=== PATIENT | female | born 1950 | race Caucasian/White ===

== ENCOUNTER → 2016-12-14 | Outpatient (CLI) | payer MEDICARE ==
[~2016-12-14] MED LIST: MULT-856 PO; [UNRECOGNIZED DRUG - OTHER]; [UNRECOGNIZED DRUG - OTHER]
[2016-12-14 14:52] LABS: BASOPHILS % (AUTO) 1 % (0-2); EOSINOPHILS # (AUTO) 0.1 10^3uL; EOSINOPHILS % (AUTO) 2 % (0-4); LYMPHOCYTES # (AUTO) 2.6 X10^3; MEAN CORPUSCULAR HEMOGLOBIN 30.4 PG (26.0-34.0); MEAN CORPUSCULAR HGB CONC 33.2 g/dL (31.0-37.0); MEAN CORPUSCULAR VOLUME 92 FL (80-100); MEAN PLATELET VOLUME 9.6 FL (6.0-9.5); MONOCYTES # (AUTO) 0.5 X10^3; MONOCYTES % (AUTO) 7 % (3-11); NEUTROPHILS # (AUTO) 4.1 X10^3; NEUTROPHILS % (AUTO) 55 % (51-67); PLATELET COUNT 404 10^3uL (150-450); WHITE BLOOD COUNT 7.33 10^3uL (4.0-11.0)
[2016-12-14 15:54] LABS: ALBUMIN 4.4 g/dL (3.4-5.0); ANION GAP 15.9 MEQ/L (3-15); TOTAL PROTEIN 8.1 g/dL (6.4-8.5)
[2016-12-14 16:21] LABS: BILIRUBIN,URINE Negative (Negative); CLARITY,URINE Clear; COLOR,URINE Yellow; GLUCOSE, URINE (UA) Negative (Negative); LEUKOCYTE ESTERASE ,URINE 1+ (Negative); UROBILINOGEN,URINE 0.2 mg/dL (0.2-1.0)
[2016-12-14 17:15] LABS: RBC,URINE None Seen /HPF; URINE CENTRIFUGED VOLUME 12 mL
== END ==
LOC: LAB 14:29
PROVIDERS: ATTEND Family Medicine
DX: R79.89 Other specified abnormal findings of blood chemistry (principal); D50.8 Other iron deficiency anemias; N39.0 Urinary tract infection, site not specified; R82.99 Other abnormal findings in urine; K57.32 Diverticulitis of large intestine without perforation or abscess without bleeding
CPT/HCPCS: 36415; 80053; 81003; 81015; 85025; 86140; 87088

== ENCOUNTER → 2016-12-15 | Outpatient (CLI) | payer MEDICARE ==
--- NOTE | 2016-12-15 10:53 | Diagnostic Imaging Report ---
PROCEDURE: CT abdomen and pelvis with and without contrast. TECHNIQUE: Precontrast acquisitions were acquired through the abdomen and pelvis. Multiple contiguous axial images were obtained through the abdomen and pelvis after the administration of intravenous contrast. INDICATION: Left lower quadrant pain, decreased stool caliber. Pre-and post-IV contrast-enhanced abdominal pelvic CT performed. Enema tip placed into the rectal vault and retrograde colonic opacification was performed. FINDINGS: Enteric contrast media opacifies the length of large bowel and reflux of the terminal ileum into the nondilated distal small bowel. Mildly elevated colonic intraluminal fecal load diffusely was present without focal impaction. No focal luminal narrowing, extrinsic mass effect or mass was found. No findings of stricture. No large or small bowel obstruction. No extravasation of contrast. No findings of viscus perforation. The visualized lung bases show some patchy areas of parenchymal infiltrate and interstitial thickening suggestive of nonspecific pneumonitis. The liver, gallbladder, bile ducts, spleen, adrenals and pancreas are all normal. The unobstructed kidneys were normal. Patient has a small hiatal not substantially changed from the older exam. Aortoiliac mild atherosclerosis is nonobstructing and nonaneurysmal. The uterus, adnexa and urinary bladder appeared normal. IMPRESSION: Mild pancolonic constipation. No large or small bowel obstruction. No focal stricture or mass. No perforation. Basilar infiltrates have developed mildly involving both lower lobes with a chronic hiatal hernia. Remaining abdominal pelvic solid and hollow viscera are unremarkable. Dictated by: Dictated on workstation # [id number]
== END ==
LOC: RAD 06:50
PROVIDERS: ATTEND Family Medicine
DX: R10.817 Generalized abdominal tenderness (principal)
CPT/HCPCS: 74178; Q9967